=== PATIENT | male | born 1985 | race Hispanic/Latino ===

== ENCOUNTER 2017-06-05 14:04 | Day surgery (SDC) | payer BC ==
[2017-06-05 15:03] VITALS: BMI 28.8
[2017-06-05] MEDS ORDERED: Lidocaine 1% w Epi 1:100,000 Inj ONE (15:17)
[2017-06-05] MEDS ORDERED: Midazolam 2 MG/2 ML VIAL ONE (15:18)
[2017-06-05 15:47] LABS: PROTHROMBIN TIME 11.1 SECONDS (9.7-12.2)
[2017-06-05] MEDS ORDERED: Lidocaine 2% Inj (20ml) ONE (17:01)
[2017-06-05] MEDS ORDERED: Iohexol 350mg/ml 100 ML ONE (17:11)
[2017-06-05] MEDS ORDERED: Iodixanol 320 MG/ML 100 ML BOTTLE IV ONE (17:23)
--- NOTE | 2017-06-05 18:04 | PCM.SURG1 ---
Surgeon's Initial Post Op Note - Surgeon's Notes Surgeon: Dr. Cornell Supervisor Microwave: Kenroy Boothe Type of Anesthesia: IV Sedation Pre-Operative Diagnosis: Vertebral artery Dissection Operative Findings: Bilateral Vertebral Artery Dissection with flow restriction on right side and good flow on the left side Post-Operative Diagnosis: bilateral vertebral artery dissection Operation Performed: diagnostic cerebral angiogram Specimen/Specimens Removed: None Estimated Blood Loss: EBL {In ML}: 20 Blood Products Given: N/A Drains Used: No Drains Post-Op Condition: Good Date of Surgery/Procedure: 06/05/17 Time of Surgery/Procedure: 18:05
--- NOTE | 2017-06-06 11:35 | PCM.OP ---
Operative Report - Operative Report Date of Surgery/Procedure: 06/05/17 Time of Surgery/Procedure: 17:00 Surgeon: Dr. Cornell Pointer Helper: Kenroy Boothe Anesthesia/Sedation: Minimal Sedation Pre-Operative Diagnosis: Bilateral Vertebral Artery Dissection Post-Operative Diagnosis: Bilateral Vertebral Artery Dissection Indication for Surgery: Bilateral Vertebral Artery Dissection Operative Findings: As below Procedure/Operation Description: Preoperative Diagnosis : Diagnostic cerebral angiogram for the evaluation of vertebral artery dissection. Postoperative Diagnosis : 1) Bilateral Vertebral Artery Dissection. A) right vertebral artery dissection is long segment in the v2 segment and is severe and flow limiting. B) Left vertebral artery dissection is focal, mildly flow limiting and possibly chronic. Procedure : Diagnostic cerebral angiogram. Referring Physician : Date of Service : 06/06/2017. Surgeon : Dr. Parish Cornell. Pointer Helper(s) : Dr. Robbin Oconnor. Consent : Informed consent was obtained for the procedure after discussing the potential risks and benefits of the procedure. Potential risks such as vascular injury, vascular occlusion, further stroke, intracranial hemorrhage and even were discussed. The benefits including obtaining information that would guide management were discussed. The alternatives including conservative management were discussed. After all questions were satisfactorily answered, the patient gave informed consent. Anesthesia : Local Anesthesia. Preoperative Medications : None. Introduction : A timeout procedure was documented, the patient's namedate of and medical record number as well as the procedures to be performed was confirmed by the entire team, after everyone in the room agreed, the procedure continued. After the patient was placed under anesthesia, both groins were prepped and draped in the usual sterile fashion.Using sterile Seldinger technique the right common femoral artery was punctured using a micropuncture kit. Over a 3mm J wire a 5 [place]ambian sheath was introduced into the artery and then hooked up to a continuous heparinized flush system.Via the sheath a 5 [place] Slip Guide Catheter was introduced over a 0.35 Terumo glide wire, into the abdominal aorta , the catheter was than double flushed. The following vessels were than sequentially selected, and digital angiographic acquisitions were than obtained. Vessels Selected : The right common carotid artery was selected and injected with cervical views. The right internal carotid artery was selected and injected with cranial views. The right subclavian artery was selected and injected with thoracic, cervical and cranial views. The left common carotid artery was selected and injected with cervical views. The left internal carotid artery was selected and injected with cranial views. The left subclavian artery was selected and injected with thoracic and cervical and cranial views. The left subclavian artery was selected and injected with cranial views. Diagnostic Imaging Findings : The right common carotid artery was selected and injected with cervical views. The right common carotid artery appears normal without any areas of irregularity or stenosis. The right external carotid artery appears normal without any areas of irregularity or stenosis. The right internal carotid artery appears normal without any areas of irregularity or stenosis. The right internal carotid artery was selected and injected with cranial views. The right internal carotid artery appears normal without any areas of irregularity or stenosis. The right middle cerebral artery appears normal without any areas of irregularity or stenosis. The right anterior cerebral artery appears normal without any areas of irregularity or stenosis. There is robust filling of the posterior circulation via a posterior communicating artery. The capillary and venous phases appears normal without any significant abnormality. The right subclavian artery was selected and injected with thoracic, cervical and cranial views. The right subclavian artery appears normal without any areas of irregularity or stenosis. The origin of the right vertebral artery appears normal without any areas of irregularity or stenosis. There is a long segment severe dissection in the v2 segment of the right vertebral artery causing flow limitation. There is some flow into the basilar artery that is obscured by washout from the contralateral side. The left common carotid artery was selected and injected with cervical views. The left common carotid artery appears normal without any areas of irregularity or stenosis. The left external carotid artery appears normal without any areas of irregularity or stenosis. The left internal carotid artery appears normal without any areas of irregularity or stenosis. The left internal carotid artery was selected and injected with cranial views. The left internal carotid artery appears normal without any areas of irregularity or stenosis. The left middle cerebral artery appears normal without any areas of irregularity or stenosis. The left anterior cerebral artery appears normal without any areas of irregularity or stenosis. The capillary and venous phases appears normal without any significant abnormality. The left subclavian artery was selected and injected with thoracic and cervical and cranial views. The left subclavian artery appears normal without any areas of irregularity or stenosis. The origin of the left vertebral artery appears normal without any areas of irregularity or stenosis. There is a focal minimally flow limiting dissection in the cervical v2 segment of the left vertebral artery. Its appearance suggests that this is possibly chronic. The left subclavian artery was selected and injected with cranial views. The intracranial portion of the left vertebral artery appears normal without any areas of irregularity or stenosis. The left PICA appears normal without any areas of irregularity or stenosis. The basilar artery appears normal without any areas of irregularity or stenosis. The right posterior cerebral artery is hypoplastic. The left posterior cerebral artery appears normal without any areas of irregularity or stenosis. The capillary and venous phases appears normal without any significant abnormality. Conclusion : Hemostasis was obtained using a 5F Mynx closure device. The patient tolerated the procedure well and there were no complications. Intraoperative Medications : None. Materials Utilized : Diagnostic Angiography kit. Impression : Please do not hesitate to contact me for any further questions or clarifications regarding this procedure or the patient at [phone]. Sincerely. Dr. Parish Cornell. [facility] Estimated Blood Loss: 20 cc Complications: None Immediate Discharge & Condition: Fair
--- NOTE | 2017-06-07 06:56 | OP ---
PROCEDURE DATE: 06/05/2017 PROCEDURE: Diagnostic cerebral angiogram. Please find the detailed report under operative report. If you have any questions, please do not hesitate to contact me at [phone]. Parish Cornell MD/ [facility]
== END 2017-06-05 20:45 | disposition short-term general hospital (02) ==
LOC: C.CATHLAB 14:04
PROVIDERS: ATTEND Psychiatry & Neurology Vascular Neurology
DX: I77.74 Dissection of vertebral artery (principal)
CPT/HCPCS: 36415; 85610; 85730; J1644; J3010; Q9967

== ENCOUNTER 2017-06-12 19:03 | Inpatient (IN) | payer BC ==
[2017-06-12 19:03] VITALS: BMI 28.8
[2017-06-12 20:04] LABS: BASO # 0.1 K/uL (0.0-0.2); BASO % 0.7 % (0.0-2.0); EOS # 0.1 K/uL (0.0-0.7); EOS % 1.3 % (0.0-4.0); HEMOGLOBIN 14.4 g/dL (12.0-18.0); LYMPH # 2.4 K/uL (1.0-4.3); LYMPH % 24.9 % (20.0-40.0); MEAN CELL VOLUME 92.6 fL (80.0-94.0); MEAN CORPUSCULAR HEMOGLOBIN 32.4 pg (27.0-31.0); MEAN PLATELET VOLUME 9.5 fL (7.2-11.7); MONO # 1.1 K/uL (0.0-0.8); MONO % 11.5 % (0.0-10.0); NEUT # 5.9 K/uL (1.8-7.0); NEUT % 61.6 % (50.0-75.0); NRBC % 0.1 % (0.0-2.0); RBC 4.44 Mil/uL (4.40-5.90); RED CELL DISTRIBUTION WIDTH 12.6 % (11.5-14.5); WHITE BLOOD COUNT 9.6 K/uL (4.8-10.8)
[2017-06-12] MEDS ORDERED: Morphine 4 MG/ML VIAL ONE (20:43)
[2017-06-12] MEDS ORDERED: Enoxaparin 100 mg Syringe SC SCH (22:45)
--- NOTE | 2017-06-12 23:01 | C.PDOC ---
History Of Present Illness Pt c/o right groin pain and swelling. Pt was diagnosed with vertebral artery dissection and was started on anticoagulation. He then had an angiogram 7 days ago done through the right femoral artery. Pt c/o worsening pain and swelling in the right groin area. An outpatient CT angio was done today which showed a femoral artery pseudoaneurysm. Time Seen by Provider: 06/12/17 19:39 Chief Complaint (Nursing): Abnormal Skin Integrity History Per: Patient Onset/Duration Of Symptoms: Days (7) Current Symptoms Are (Timing): Worse Severity: Moderate Context: s/p angiogram Location: Right groin Quality: Swelling Reports Recently: Treated By A Physician Additional History Per: Prior Records Past Medical History Reviewed: Historical Data, Nursing Documentation, Vital Signs Vital Signs: Last Vital Signs Temp 98.6 F 06/12/17 21:38 Pulse 73 06/12/17 21:38 Resp 18 06/12/17 21:38 BP 125/87 06/12/17 21:38 Pulse Ox 99 06/12/17 21:38 - Medical History PMH: Hypothyroidism Other PMH: Vertebral artery dissection - [employer] Procedures INJECT/INFUSE NEC (05/18/14) Family History: States: Unknown Family Hx - Social History Hx Alcohol Use: No (occasionally) Hx Substance Use: No - Immunization History Hx Tetanus Toxoid Vaccination: No Hx Influenza Vaccination: No Hx Pneumococcal Vaccination: No Review Of Systems Except As Marked, All Systems Reviewed And Found Negative. Constitutional: Negative for: Fever Cardiovascular: Negative for: Chest Pain Respiratory: Negative for: Shortness of Breath Gastrointestinal: Negative for: Vomiting, Abdominal Pain Genitourinary: Negative for: Dysuria Musculoskeletal: Negative for: Neck Pain, Back Pain, Leg Pain Skin: Positive for: Bruising Neurological: Negative for: Weakness, Numbness Physical Exam - Physical Exam Appears: Non-toxic, No Acute Distress Skin: Warm, Dry, Ecchymosis (right groin) Head: Atraumatic, Normacephalic Eye(s): bilateral: PERRL, EOMI Neck: Normal ROM, Supple Cardiovascular: Rhythm Regular Respiratory: Normal Breath Sounds, No Accessory Muscle Use Gastrointestinal/Abdominal: Soft, No Tenderness Back: No CVA Tenderness Male Genital: No Testicular Tenderness, No Testicular Swelling, Inguinal Tenderness (right), Inguinal Swelling (right), No Scrotal Swelling Extremity: Normal ROM, No Pedal Edema, No Calf Tenderness Pulses: Left Dorsalis Pedis: Normal, Right Dorsalis Pedis: Normal Neurological/Psych: Oriented x3, Normal Motor, Normal Sensation ED Course And Treatment - Laboratory Results Result Diagrams: 06/12/17 19:55 Lab Interpretation: No Changes Compared To Prior Results O2 Sat by Pulse Oximetry: 99 Pulse Ox Interpretation: Normal - Physician Consult Information Physician Contacted: Dallas Diaz Jr. (Vascular) Outcome Of Conversation: He will consult. Disposition Discussed With : Az Gilbert Comment: He accepted pt on his service and requested Vascular consult from Dr. Diaz. Doctor Will See Patient In The: Hospital Counseled Patient/Family Regarding: Studies Performed, Diagnosis - Disposition Disposition: HOSPITALIZED Disposition Time: 23:03 Condition: FAIR - Clinical Impression Clinical Impression: Pseudoaneurysm of right femoral artery
--- NOTE | 2017-06-12 23:41 | CP.PCM.CON ---
History of Present Illness - History of Present Illness History of Present Illness: Vascular Surgery Consult Note for Dr. Diaz Reason for Consult: Right common femoral artery pseudoaneurysm 32 M with past medical history that includes eboni's thyroiditis, s/p CVA, and bilateral vertebral artery dissections presents with right groin pain for two days. Patient states he has had soreness in area since last week but pain worsened on Monday. Patient presented to [facility] about a week ago with CVA symptoms and after thorough work up, found to have bilateral vertebral artery dissections. Patient had cerebral angiogram during the admission. In operative report its state micro puncture kit was used and closure with 5F mynx closure device. Patient had appointment with Dr. Santos today in which he was sent for CT Angio. It revealed right common femoral artery pseudo aneurysm with foci of bleeding in right groin. Patience Hgb at time of scan was 14.7 and subsequent CBC done in ED showed Hgb of 14.4. Patient rates pain as moderate to severe. He describes it as constant and sharp. Movement and palpation exacerbates pain while analgesics provide some relief. Denies chest pain, shortness of breath, dizziness/lightheadedness, chest pain, SOB, abdominal pain, nausea/vomiting, diarrhea, numbness/tingling, motor/sensory deficits. PMH: eboni's thyroiditis, s/p CVA, bilateral vertebral artery dissections Meds: Levothyroxine Alergy: NKDA PSH: cerebral angiogram, 2 nasal surgeries FH: marfan's syndrome, CAD, unknown Neuro disorder, autoimmune diseases Social: denies tobacco/EtOH/illicit drug use Review of Systems - Review of Systems All systems: reviewed and no additional remarkable complaints except (as per HPI ) Past Patient History - Past Medical History & Family History Past Medical History?: Yes - Past Social History Smoking Status: Never Smoked - PULMONARY Hx Respiratory Disorders: Yes - NEUROLOGICAL HX Cerebrovascular Accident: Yes (06/04/2017) - ENDOCRINE/METABOLIC Hx Hypothyroidism: Yes - MUSCULOSKELETAL/RHEUMATOLOGICAL Hx Falls: Yes - PSYCHIATRIC Hx Substance Use: No - SURGICAL HISTORY Hx Angiogram: Yes (06/05/2017) - ANESTHESIA Hx Anesthesia: Yes Hx Anesthesia Reactions: No Hx Malignant Hyperthermia: No Meds Allergies/Adverse Reactions: Allergies Allergy/AdvReac Type Severity Reaction Status Date / Time No Known Allergies Allergy Verified 06/12/17 19:14 - Medications Medications: Current Medications Levothyroxine Sodium (Synthroid) 125 mcg PO DAILY@0630 CELINA Rosuvastatin Calcium (Crestor) 5 mg PO HS CELINA Physical Exam - Constitutional Appears: No Acute Distress - Head Exam Head Exam: ATRAUMATIC, NORMOCEPHALIC - Eye Exam Eye Exam: EOMI, Normal appearance Pupil Exam: PERRL - ENT Exam ENT Exam: Mucous Membranes Moist - Respiratory Exam Respiratory Exam: NORMAL BREATHING PATTERN - Cardiovascular Exam Cardiovascular Exam: REGULAR RHYTHM - GI/Abdominal Exam GI & Abdominal Exam: Soft. absent: Distended, Guarding, Rebound, Tenderness Additional comments: ecchymoses from lovenox injections - Extremities Exam Extremities exam: Positive for: normal capillary refill, tenderness (R groin), pedal pulses present (bilaterally). Negative for: calf tenderness Additional comments: RLE: large R groin ecchymosis, TTP, edema, palpable solid circular mass, femoral /popliteal/PT/DP pulses palpable, sensation intact, motor function intact 5/5 except for hip flexion 4/5, reflexes normal, warm to touch - Back Exam Back exam: absent: CVA tenderness (L), CVA tenderness (R) - Neurological Exam Neurological exam: Alert, CN II-XII Intact, Oriented x3, Reflexes Normal - Expanded Neurological Exam Expanded Coma Scale Eye Opening: SPONTANEOUS Coma Scale Motor Response: OBEYS COMMANDS Coma Scale Verbal: Oriented Coma Scale Total: 15 - Psychiatric Exam Psychiatric exam: Normal Affect, Normal Mood - Skin Skin Exam: Dry, Intact, Warm Results - Vital Signs Recent Vital Signs: Last Vital Signs Temp 98.6 F 06/12/17 21:38 Pulse 73 06/12/17 21:38 Resp 18 06/12/17 21:38 BP 125/87 06/12/17 21:38 Pulse Ox 99 06/12/17 23:04 - Labs Result Diagrams: 06/12/17 19:55 Labs: Laboratory Results - last 24 hr 06/12/17 06/12/17 06/12/17 19:55 19:59 20:03 WBC 9.6 RBC 4.44 Hgb 14.4 Hct 41.1 MCV 92.6 MCH 32.4 H MCHC 35.0 RDW 12.6 Plt Count 248 MPV 9.5 Neut % (Auto) 61.6 Lymph % (Auto) 24.9 Sullivan % (Auto) 11.5 H Eos % (Auto) 1.3 Baso % (Auto) 0.7 Neut # (Auto) 5.9 Lymph # (Auto) 2.4 Sullivan # (Auto) 1.1 H Eos # (Auto) 0.1 Baso # (Auto) 0.1 ESR 55 H Blood Type O POSITIVE Antibody Screen Negative Assessment & Plan - Assessment and Plan (Free Text) Plan: 32 M with Right common femoral artery pseudoaneurysm -NPO -Arterial duplex -Hold anticoagulation -IR consult -Possible thrombin injection -Discussed with Dr. Emily Barnard PGY1
[2017-06-13 03:06] VITALS: RESP 20
[2017-06-13] MEDS: Levothyroxine 125 MCG TAB PO SCH (06:23)
[2017-06-13] MEDS ORDERED: Thrombin Topical 5,000 Int Units Spray Kit TOP ONE (09:04)
[2017-06-13 09:18] LABS: INR 1.1; PROTHROMBIN TIME 12.5 SECONDS (9.7-12.2)
[2017-06-13 09:28] LABS: ALB/GLOB RATIO 1.1 (1.0-2.1); ALBUMIN 3.9 g/dL (3.5-5.0); ALT/SGPT 100 U/L (21-72); AST/SGOT 47 U/L (17-59); BLOOD UREA NITROGEN 11 mg/dL (9-20); CALCIUM 9.1 mg/dl (8.6-10.4); GFR AFRICAN-AMERICAN > 60; GFR NON-AFRICAN AMERICAN > 60
--- NOTE | 2017-06-13 09:41 | CP.PCM.PN ---
Subjective - Date & Time of Evaluation Date of Evaluation: 06/13/17 Time of Evaluation: 08:00 - Subjective Subjective: Vascular Surgery- Dr. Diaz Patient seen and examined at bedside this AM. Patient currently has sandbag and pressure over right groin. Denies fevers, chills, chest pain, shortness of breath, numbness/tingling in extremities. Objective - Vital Signs/Intake and Output Vital Signs (last 24 hours): Temp Pulse Resp BP Pulse Ox 97.6 F 81 20 138/86 97 06/13/17 07:00 06/13/17 07:00 06/13/17 07:00 06/13/17 07:00 06/13/17 07:00 - Medications Medications: Current Medications Levothyroxine Sodium (Synthroid) 125 mcg PO DAILY@0630 CELINA Last Admin: 06/13/17 06:23 Dose: 125 mcg Rosuvastatin Calcium (Crestor) 5 mg PO HS CELINA - Labs Labs: 06/12/17 19:55 06/13/17 09:06 PT 12.5 SECONDS (9.7-12.2) H 06/13/17 09:06 INR 1.1 06/13/17 09:06 APTT 33 SECONDS (21-34) 06/13/17 09:06 - Constitutional Appears: Non-toxic, No Acute Distress - Eye Exam Eye Exam: EOMI. absent: Scleral icterus - ENT Exam ENT Exam: Mucous Membranes Moist - Respiratory Exam Respiratory Exam: NORMAL BREATHING PATTERN. absent: Accessory Muscle Use, Respiratory Distress - Cardiovascular Exam Cardiovascular Exam: +S1, +S2 - GI/Abdominal Exam GI & Abdominal Exam: Soft. absent: Guarding, Rigid, Tenderness - Extremities Exam Additional comments: R. Groin incision site, ecchymosis. non-palpable hematoma - Neurological Exam Neurological Exam: Alert, Awake, Oriented x3 - Skin Skin Exam: Intact, Warm Assessment and Plan - Assessment and Plan (Free Text) Assessment: 32 M with Right common femoral artery pseudoaneurysm Plan: -NPO -Arterial duplex -Hold anticoagulation -IR consult for possible thrombin injection -Discussed with Dr. Emily Winter PGY1
[2017-06-13] MEDS ORDERED: Lidocaine 2% Inj (20ml) ONE (11:11)
--- NOTE | 2017-06-13 12:15 | CP.PCM.CON ---
History of Present Illness - History of Present Illness History of Present Illness: Consult Location: Inpatient Reason for consult: Large Right Femoral Pseudoaneurysm Consult Requested by: Dr. Santos Chief Concern: Pain in right leg HPI: 32 yo gentleman with a medical history significant for Hasimoto's Thyroiditis, Ischemic Stroke, Bilateral Vertebral Artery Dissections who presented to Dr. Santos's office for right leg pain. The patient had an angiogram 7 days ago and was discharged home and noticed that his right groin was painful and bruised. He was having pain in the region but assumed that it was expected. He was also taking his lovenox as prescribed. He has not had any stroke like episodes. No other complaints at this time. PMH: as above PSH: Endoscopic sinus surgery, Diagnostic Cerebral Angiogram All: NKDA Meds: Reviewed and listed below SH: no t.e.d FH: Collagen Vascular Disorders and autoimmune diseases On exam MSE: AO x 3, No aphasia or neglect, No dysarthria CN: pupils 4 mm to 3 mm b/l, VFF, EOM full, no nystagmus, no facial asymmetry or sensory loss, tongue midline, hearing intact b/l Motor: 5/5 b/l Sensory: Intact bilaterally Coord: No dysmetria Gait: Deferred Right Groin: Bruising noted and a hematoma noted on palpation. Past Patient History - Past Medical History & Family History Past Medical History?: Yes - Past Social History Smoking Status: Never Smoked - PULMONARY Hx Respiratory Disorders: Yes - NEUROLOGICAL HX Cerebrovascular Accident: Yes (06/04/2017) - ENDOCRINE/METABOLIC Hx Hypothyroidism: Yes - MUSCULOSKELETAL/RHEUMATOLOGICAL Hx Falls: Yes - PSYCHIATRIC Hx Substance Use: No - SURGICAL HISTORY Hx Angiogram: Yes (06/05/2017) - ANESTHESIA Hx Anesthesia: Yes Hx Anesthesia Reactions: No Hx Malignant Hyperthermia: No Meds Allergies/Adverse Reactions: Allergies Allergy/AdvReac Type Severity Reaction Status Date / Time No Known Allergies Allergy Verified 06/12/17 19:14 - Medications Medications: Current Medications Levothyroxine Sodium (Synthroid) 125 mcg PO DAILY@0630 [facility] Last Admin: 06/13/17 06:23 Dose: 125 mcg Rosuvastatin Calcium (Crestor) 5 mg PO [facility] Results - Vital Signs Recent Vital Signs: Last Vital Signs Temp 97.6 F 06/13/17 07:00 Pulse 81 06/13/17 07:00 Resp 20 06/13/17 07:00 BP 138/86 06/13/17 07:00 Pulse Ox 97 06/13/17 07:00 - Labs Result Diagrams: 06/12/17 19:55 06/13/17 09:06 Labs: Laboratory Results - last 24 hr 06/12/17 06/12/17 06/12/17 19:55 19:59 20:03 WBC 9.6 RBC 4.44 Hgb 14.4 Hct 41.1 MCV 92.6 MCH 32.4 H MCHC 35.0 RDW 12.6 Plt Count 248 MPV 9.5 Neut % (Auto) 61.6 Lymph % (Auto) 24.9 Nicholas % (Auto) 11.5 H Eos % (Auto) 1.3 Baso % (Auto) 0.7 Neut # (Auto) 5.9 Lymph # (Auto) 2.4 Nicholas # (Auto) 1.1 H Eos # (Auto) 0.1 Baso # (Auto) 0.1 ESR 55 H PT INR APTT Sodium Potassium Chloride Carbon Dioxide Anion Gap BUN Creatinine Est GFR ( Amer) Est GFR (Non-Af Amer) Random Glucose Calcium Total Bilirubin AST ALT Alkaline Phosphatase Total Protein Albumin Globulin Albumin/Globulin Ratio Blood Type O POSITIVE Antibody Screen Negative 06/13/17 06/13/17 09:06 09:06 WBC RBC Hgb Hct MCV MCH MCHC RDW Plt Count MPV Neut % (Auto) Lymph % (Auto) Nicholas % (Auto) Eos % (Auto) Baso % (Auto) Neut # (Auto) Lymph # (Auto) Nicholas # (Auto) Eos # (Auto) Baso # (Auto) ESR PT 12.5 H INR 1.1 APTT 33 Sodium 139 Potassium 3.8 Chloride 100 Carbon Dioxide 27 Anion Gap 16 BUN 11 Creatinine 0.9 Est GFR ( Amer) > 60 Est GFR (Non-Af Amer) > 60 Random Glucose 100 Calcium 9.1 Total Bilirubin 1.2 AST 47 ALT 100 H Alkaline Phosphatase 82 Total Protein 7.6 Albumin 3.9 Globulin 3.6 Albumin/Globulin Ratio 1.1 Blood Type Antibody Screen Assessment & Plan - Assessment and Plan (Free Text) Assessment: Large Right Femoral Artery Pseudo Aneurysm noted on CTA for evaluation and possible thrombin injection Plan: 1) I had a detailed discussion with Dr. Korya regarding the case yesterday evening ( after reviewing the cta) and we decided to stop the anticoagulation for the time being 2) Pain control - Start with tylenol 3) I had a detailed discussion with the patient and his mother regarding the potentially serious nature of his condition. I discussed the risks benefits and alternatives to treatment of the femoral pseudoaneurysm with compression and potentially thrombin injection and they both expressed excellent understanding of the same 4) Approximately 45 minutes of critical care time was spent in evaluating and managing and coordinating and documenting care for this patient with a large right femoral artery pseudoaneurysm - Date & Time Date: 06/13/17 Time: 11:00
--- NOTE | 2017-06-13 12:44 | PCM.SURG1 ---
Surgeon's Initial Post Op Note - Surgeon's Notes Surgeon: Dr. Cornell Category Consultant: None Type of Anesthesia: Moderate Sedation{RN} Anesthesia Administered By: Dr. Cornell Pre-Operative Diagnosis: Large Right Femoral Artery Pseudoaneurysm Operative Findings: The pseudoaneurysm has reduced in size compared to CTA. There is now a smaller sac measuring 1.5 cm that is filling via multiple necks. Post-Operative Diagnosis: Successful Obliteration of Right Femoral Artery Pseudoaneurysm with Ultrasound Guided Compression Operation Performed: Ultrasound guided compression of right femoral artery pseudoaneurysm. The multiple necks were sequentially compressed under untrasound guidance over a period of 45 minutes with successful obliteration of the pseudoaneurysm. 50 mcg of fentanyl was administered during the procedure. Specimen/Specimens Removed: None Estimated Blood Loss: EBL {In ML}: 0 (None) Blood Products Given: N/A Drains Used: No Drains Post-Op Condition: Fair Date of Surgery/Procedure: 06/13/17 Time of Surgery/Procedure: 12:45
--- NOTE | 2017-06-13 23:11 | CP.PCM.HP ---
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 Patient states he has had soreness in area since last week but pain worsened on Monday. Patient presented to [facility] about a week ago with CVA symptoms and after thorough work up, found to have bilateral vertebral artery dissections. Patient had cerebral angiogram during the admission. In operative report its state micro puncture kit was used and closure with 5F mynx closure device. Patient had appointment with Dr. Santos today in which he was sent for CT Angio. It revealed right common femoral artery pseudo aneurysm with foci of bleeding in right groin. Patience Hgb at time of scan was 14.7 and subsequent CBC done in ED showed Hgb of 14.4. Patient rates pain as moderate to severe. He describes it as constant and sharp. Movement and palpation exacerbates pain while analgesics provide some relief. Denies chest pain, shortness of breath, dizziness/lightheadedness, chest pain, SOB, abdominal pain, nausea/vomiting, diarrhea, numbness/tingling, motor/sensory deficits. PMH: eboni's thyroiditis, s/p CVA, bilateral vertebral artery dissections Meds: Levothyroxine Alergy: NKDA PSH: cerebral angiogram, 2 nasal surgeries FH: marfan's syndrome, CAD, unknown Neuro disorder, autoimmune diseases Social: denies tobacco/EtOH/illicit drug use Present on Admission - Present on Admission Any Indicators Present on Admission: Yes Review of Systems - Review of Systems Systems not reviewed;Unavailable: Acuity of Condition - Constitutional Constitutional: Fatigue, Lethargy, Malaise, Weakness - EENT Eyes: absent: As Per HPI, Blind Spots, Blurred Vision, Change in Vision, Decreased Night Vision, Diplopia, Discharge, Dry Eye, Exophthalmos, Floaters, Irritation, Itchy Eyes, Loss of Peripheral Vision, Pain, Photophobia, Requires Corrective Lenses, Sees Flashes, Spots in Vision, Tunnel Vision, Other Visual Disturbances, Loss of Vision, Other Nose/Mouth/Throat: absent: As Per HPI, Epistaxis, Nasal Congestion, Nasal Discharge, Nasal Obstruction, Nasal Trauma, Nose Pain, Post Nasal Drip, Sinus Pain, Sinus Pressure, Bleeding Gums, Change in Voice, Dental Pain, Dry Mouth, Dysphagia, Halitosis, Hoarsness, Lip Swelling, Mouth Lesions, Mouth Pain, Odynophagia, Sore Throat, Throat Swelling, Tongue Swelling, Facial Pain, Neck Pain, Neck Mass, Other - Cardiovascular Cardiovascular: absent: As Per HPI, Acrocyanosis, Chest Pain, Chest Pain at Rest , Chest Pain with Activity, Claudication, Diaphoresis, Dyspnea, Dyspnea on Exertion, Edema, Irregular Heart Rhythm, Pain Radiating to Arm/Neck/Jaw, Leg Edema, Leg Ulcers, Lightheadedness, Orthopnea, Palpitations, Paroxysmal Nocturnal Dyspnea, Pedal Edema, Radiating Pain, Rapid Heart Rate, Slow Heart Rate, Syncope, Other - Musculoskeletal Musculoskeletal: Limited Range of Motion, Numbness, Tingling - Integumentary Integumentary: absent: As Per HPI, Acne, Alopecia, Bleeding Lesions, Change in Hair, Change in Nails, Change in Pigmentation, Changing Lesions, Dry Skin, Erythema, Furuncle, Hirsutism, Lesions, New Lesions, Non-Healing Lesions, Photosensitivity, Pruritus, Rash, Skin Pain, Skin Ulcer, Sores, Striae, Swelling , Unusual Bruising, Wounds, Jaundice, Other Past Patient History - Past Medical History & Family History Past Medical History?: Yes - Past Social History Smoking Status: Never Smoked - PULMONARY Hx Respiratory Disorders: Yes - NEUROLOGICAL HX Cerebrovascular Accident: Yes (06/04/2017) - ENDOCRINE/METABOLIC Hx Hypothyroidism: Yes - MUSCULOSKELETAL/RHEUMATOLOGICAL Hx Falls: Yes - PSYCHIATRIC Hx Substance Use: No - SURGICAL HISTORY Hx Angiogram: Yes (06/05/2017) - ANESTHESIA Hx Anesthesia: Yes Hx Anesthesia Reactions: No Hx Malignant Hyperthermia: No Meds Allergies/Adverse Reactions: Allergies Allergy/AdvReac Type Severity Reaction Status Date / Time No Known Allergies Allergy Verified 06/12/17 19:14 Physical Exam - Constitutional Appears: No Acute Distress - Head Exam Head Exam: ATRAUMATIC, NORMAL INSPECTION, NORMOCEPHALIC - Eye Exam Eye Exam: EOMI, Normal appearance, PERRL Pupil Exam: NORMAL ACCOMODATION, PERRL - Respiratory Exam Respiratory Exam: Clear to Auscultation Bilateral, NORMAL BREATHING PATTERN - Cardiovascular Exam Cardiovascular Exam: REGULAR RHYTHM - Extremities Exam Extremities exam: Negative for: calf tenderness, full ROM, joint swelling, normal capillary refill, normal inspection, pedal edema, tenderness, pedal pulses present - Neurological Exam Neurological exam: Abnormal Gait, Oriented x3 - Psychiatric Exam Psychiatric exam: Anxious Results - Vital Signs Recent Vital Signs: Last Vital Signs Temp 98.3 F 06/13/17 15:25 Pulse 72 06/13/17 15:25 Resp 20 06/13/17 15:25 BP 127/80 06/13/17 15:25 Pulse Ox 95 06/13/17 15:25 - Labs Result Diagrams: 06/14/17 06:54 06/14/17 06:54 Labs: Laboratory Results - last 24 hr 06/13/17 06/13/17 09:06 09:06 PT 12.5 H INR 1.1 APTT 33 Sodium 139 Potassium 3.8 Chloride 100 Carbon Dioxide 27 Anion Gap 16 BUN 11 Creatinine 0.9 Est GFR ( Amer) > 60 Est GFR (Non-Af Amer) > 60 Random Glucose 100 Calcium 9.1 Total Bilirubin 1.2 AST 47 ALT 100 H Alkaline Phosphatase 82 Total Protein 7.6 Albumin 3.9 Globulin 3.6 Albumin/Globulin Ratio 1.1 Assessment & Plan (1) Pseudoaneurysm of right femoral artery Assessment and Plan: s/p surgery on psedoaneurysm and its shrunk 1 cm Status: Acute (2) Hypertension Status: Acute (3) Vertebral artery dissection Status: Acute
[2017-06-14] MEDS: Levothyroxine 125 MCG TAB PO SCH (06:41)
[2017-06-14 07:06] LABS: HEMOGLOBIN 13.5 g/dL (12.0-18.0); MEAN CELL VOLUME 93.5 fL (80.0-94.0); MEAN CORPUSCULAR HEMOGLOBIN 32.1 pg (27.0-31.0); MEAN CORPUSCULAR HGB CONC 34.3 g/dL (33.0-37.0); MEAN PLATELET VOLUME 9.8 fL (7.2-11.7); RBC 4.21 Mil/uL (4.40-5.90); RED CELL DISTRIBUTION WIDTH 12.3 % (11.5-14.5); WHITE BLOOD COUNT 7.2 K/uL (4.8-10.8)
[2017-06-14 07:47] LABS: BLOOD UREA NITROGEN 16 mg/dL (9-20); CALCIUM 8.9 mg/dl (8.6-10.4); GFR AFRICAN-AMERICAN > 60; GFR NON-AFRICAN AMERICAN > 60
--- NOTE | 2017-06-14 12:01 | VASCLAB ---
PROCEDURE: HISTORY: right Femoral Aneursyuem COMPARISON: None available. TECHNIQUE: FINDINGS: Two pseudoaneuryms present. The more superficial pseudoanuerym is thrombosed. The smaller pseudoanerysm measures 2.1 X 1.8 cm. The neck is estimated at 2-3 mm. IMPRESSION: Small active pseudoaneurysm noted in the right groin measuring 2.1 x 1.8 cm with a very small neck.
--- NOTE | 2017-06-14 20:40 | CP.PCM.PN ---
Subjective - Date & Time of Evaluation Date of Evaluation: 06/14/17 Time of Evaluation: 06:40 - Subjective Subjective: Vascular Surgery- Dr. Diaz Patient seen and examined at bedside this AM. aneurysm and puncture site attempted closure yesterday by IR. No new complaints. Denies fevers, chills, chest pain, shortness of breath, numbness/tingling in extremities. Objective - Vital Signs/Intake and Output Vital Signs (last 24 hours): Temp Pulse Resp BP Pulse Ox 97.2 F L 75 20 126/84 95 06/14/17 16:23 06/14/17 16:23 06/14/17 16:23 06/14/17 16:23 06/14/17 16:23 - Medications Medications: Current Medications Docusate Sodium (Colace) 100 mg PO TID [facility] Last Admin: 06/14/17 18:35 Dose: 100 mg Levothyroxine Sodium (Synthroid) 125 mcg PO DAILY@0630 [facility] Last Admin: 06/14/17 06:41 Dose: 125 mcg Rosuvastatin Calcium (Crestor) 5 mg PO [facility] Last Admin: 06/13/17 21:38 Dose: Not Given - Labs Labs: 06/14/17 06:54 06/14/17 06:54 PT 12.5 SECONDS (9.7-12.2) H 06/13/17 09:06 INR 1.1 06/13/17 09:06 APTT 33 SECONDS (21-34) 06/13/17 09:06 - Constitutional Appears: Non-toxic, No Acute Distress - Eye Exam Eye Exam: EOMI. absent: Scleral icterus - ENT Exam ENT Exam: Mucous Membranes Moist - Respiratory Exam Respiratory Exam: NORMAL BREATHING PATTERN. absent: Accessory Muscle Use, Respiratory Distress - Cardiovascular Exam Cardiovascular Exam: +S1, +S2. absent: Bradycardia, Tachycardia - GI/Abdominal Exam GI & Abdominal Exam: Soft. absent: Firm, Guarding, Rigid, Tenderness - Extremities Exam Extremities Exam: absent: Calf Tenderness Additional comments: palpable pedal pulses Right Groin hematoma non-expanding, stable. no signs of active bleeding - Neurological Exam Neurological Exam: Alert, Awake, Oriented x3 - Skin Skin Exam: Intact, Warm Assessment and Plan - Assessment and Plan (Free Text) Assessment: 32 M with Right common femoral artery pseudoaneurysm Plan: - IR attempted thrombin injection yesterday. Site too small - hematoma stable - trend H/H - no surgical intervention indicated at this time - Discussed with Dr. Emily Winter PGY1
--- NOTE | 2017-06-14 22:07 | CP.PCM.CON ---
History of Present Illness - History of Present Illness History of Present Illness: 32 yr old male who was admitted several weeks ago, seen by myself and Dr. 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 Patient had a conventional angiogram performed by and developed a right femoral artery pseudoaneurysm in his right groin. He was admitted and treated and we are following his neurological status. On my examination, has no neurological deficits, except for his baseline dysmetria (from his prior cerebellar infarcts), and his inability to walk tandem. He denies headache, difficulty finding words, weakness, or visual field cut. He has been taking eloquis and tolerating it well over the last week , and has seen in follow up. He was actually sent to the hospital by who noted the development of this pseudoaneurysm. Subsequently, Dr. Cornell performed surgical procedure to reduce the aneurysm. During clinic visit, it was determined that the patient carries a family history of Marfan's syndrome in his great aunt, grandmother and great uncles. There is also a history of strokes, etiology undetermined, at age of 60 on both sides of the family. On his last admission, we sent out hypercoagulable workup, which must be checked. PMH/PSH: HTN, As above. Fh/SH: Binge drinks 1-2 times weekly. 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 No smoking. All: nkda. on exam: Normal neurological exam, except for dysmetria, and difficulty walking heel/ nolen. Past Patient History - Past Medical History & Family History Past Medical History?: Yes - Past Social History Smoking Status: Never Smoked - PULMONARY Hx Respiratory Disorders: Yes - NEUROLOGICAL HX Cerebrovascular Accident: Yes (06/04/2017) - ENDOCRINE/METABOLIC Hx Hypothyroidism: Yes - MUSCULOSKELETAL/RHEUMATOLOGICAL Hx Falls: Yes - PSYCHIATRIC Hx Substance Use: No - SURGICAL HISTORY Hx Angiogram: Yes (06/05/2017) - ANESTHESIA Hx Anesthesia: Yes Hx Anesthesia Reactions: No Hx Malignant Hyperthermia: No Meds Allergies/Adverse Reactions: Allergies Allergy/AdvReac Type Severity Reaction Status Date / Time No Known Allergies Allergy Verified 06/12/17 19:14 - Medications Medications: Current Medications Docusate Sodium (Colace) 100 mg PO TID [facility] Last Admin: 06/14/17 18:35 Dose: 100 mg Levothyroxine Sodium (Synthroid) 125 mcg PO DAILY@0630 [facility] Last Admin: 06/14/17 06:41 Dose: 125 mcg Rosuvastatin Calcium (Crestor) 5 mg PO HS [facility] Last Admin: 06/14/17 21:34 Dose: Not Given Results - Vital Signs Recent Vital Signs: Last Vital Signs Temp 97.2 F L 06/14/17 16:23 Pulse 75 06/14/17 16:23 Resp 20 06/14/17 16:23 BP 126/84 06/14/17 16:23 Pulse Ox 95 06/14/17 16:23 - Labs Result Diagrams: 06/14/17 06:54 06/14/17 06:54 Labs: Laboratory Results - last 24 hr 06/14/17 06/14/17 06:54 06:54 WBC 7.2 RBC 4.21 L Hgb 13.5 Hct 39.3 MCV 93.5 MCH 32.1 H MCHC 34.3 RDW 12.3 Plt Count 273 MPV 9.8 Sodium 136 Potassium 3.6 Chloride 100 Carbon Dioxide 25 Anion Gap 15 BUN 16 Creatinine 1.0 Est GFR ( Amer) > 60 Est GFR (Non-Af Amer) > 60 Random Glucose 106 Calcium 8.9 Assessment & Plan - Assessment and Plan (Free Text) Assessment: 32 yr old male with hypercoagulable state secondary to most likely underlying autoimmune disorder, ie vasculitis, bilateral vertebral artery dissections, ? intracranial vascultis, now with healing right femoral artery pseudoaneurysms. Of note, he also had recent bilateral cerebellar strokes. Plan: 1. Continue eloquis and aspirin 2. Control htn 3. Enforced diet and exercise. 4. Will follow up autoimmune workup. 5. SHould see grave cleaner. Thank you. we will follow.
--- NOTE | 2017-06-14 23:45 | CP.PCM.PN ---
Subjective - Date & Time of Evaluation Date of Evaluation: 06/14/17 Time of Evaluation: 18:00 - Subjective Subjective: Pt seen and evalauted s/p psedoaneurysm reduction, pt c/o some pain at surgical site otherwise feeling better Objective - Vital Signs/Intake and Output Vital Signs (last 24 hours): Temp Pulse Resp BP Pulse Ox 97.2 F L 75 20 126/84 95 06/14/17 16:23 06/14/17 16:23 06/14/17 16:23 06/14/17 16:23 06/14/17 16:23 - Medications Medications: Current Medications Docusate Sodium (Colace) 100 mg PO TID [facility] Last Admin: 06/14/17 18:35 Dose: 100 mg Levothyroxine Sodium (Synthroid) 125 mcg PO DAILY@0630 [facility] Last Admin: 06/14/17 06:41 Dose: 125 mcg Rosuvastatin Calcium (Crestor) 5 mg PO HS [facility] Last Admin: 06/14/17 21:34 Dose: Not Given - Labs Labs: 06/14/17 06:54 06/14/17 06:54 PT 12.5 SECONDS (9.7-12.2) H 06/13/17 09:06 INR 1.1 06/13/17 09:06 APTT 33 SECONDS (21-34) 06/13/17 09:06 - Constitutional Appears: No Acute Distress - Head Exam Head Exam: ATRAUMATIC, NORMAL INSPECTION, NORMOCEPHALIC - Eye Exam Eye Exam: EOMI, Normal appearance, PERRL Pupil Exam: NORMAL ACCOMODATION, PERRL - Respiratory Exam Respiratory Exam: Clear to Ausculation Bilateral, NORMAL BREATHING PATTERN - Cardiovascular Exam Cardiovascular Exam: REGULAR RHYTHM, +S1, +S2. absent: Murmur - GI/Abdominal Exam GI & Abdominal Exam: Soft, Normal Bowel Sounds. absent: Tenderness - Neurological Exam Neurological Exam: Alert, Awake, CN II-XII Intact, Normal Gait, Oriented x3 - Psychiatric Exam Psychiatric exam: Normal Affect, Normal Mood Assessment and Plan (1) Pseudoaneurysm of right femoral artery Status: Acute (2) Hypertension Status: Acute (3) Vertebral artery dissection Status: Acute
[2017-06-15] MEDS: Levothyroxine 125 MCG TAB PO SCH (06:02)
--- NOTE | 2017-06-15 08:18 | CP.PCM.PN ---
Subjective - Date & Time of Evaluation Date of Evaluation: 06/15/17 Time of Evaluation: 08:13 - Subjective Subjective: Mr. Kyle was seen and examined at the bedside. He is alert, oriented in all spheres. He denies any headache, dizziness, lightheadedness, nausea, or vomiting. He has the right femoral pseudoaneurym. He has the fading ecchymosis in the right inner thigh with 5" x 2 " hematoma, tender to touch, but the size of hematoma not increasing.There is positive pedal pulses of the affected leg. Vascular surgery saw the patient with no invasive procedure recommended, but the present hematoma will be absorb by patient's body. There was no untoward events overnight. Objective - Vital Signs/Intake and Output Vital Signs (last 24 hours): Temp Pulse Resp BP Pulse Ox 97.6 F 63 20 125/78 97 06/15/17 07:53 06/15/17 07:53 06/15/17 07:53 06/15/17 07:53 06/15/17 07:53 Intake and Output: 06/15/17 06/15/17 06:59 18:59 Intake Total 10 Balance 10 - Medications Medications: Current Medications Docusate Sodium (Colace) 100 mg PO TID [facility] Last Admin: 06/14/17 18:35 Dose: 100 mg Levothyroxine Sodium (Synthroid) 125 mcg PO DAILY@0630 [facility] Last Admin: 06/15/17 06:02 Dose: 125 mcg Rosuvastatin Calcium (Crestor) 5 mg PO HS [facility] Last Admin: 06/14/17 21:34 Dose: Not Given - Labs Labs: 06/14/17 06:54 06/14/17 06:54 PT 12.5 SECONDS (9.7-12.2) H 06/13/17 09:06 INR 1.1 06/13/17 09:06 APTT 33 SECONDS (21-34) 06/13/17 09:06 - Constitutional Appears: No Acute Distress - Head Exam Head Exam: NORMAL INSPECTION - Neurological Exam Neurological Exam: Alert, Awake, Oriented x3 Neuro motor strength exam: Left Upper Extremity: 5, Right Upper Extremity: 5, Left Lower Extremity: 5, Right Lower Extremity: 5 Additional comments: He is able to follow simple commands. Sensation remains intact. + CMS of the right leg. Assessment and Plan (1) Pseudoaneurysm of right femoral artery Assessment & Plan: Case discussed with Dr. Acuna, continue all current medical regimen. Recommend to start on Eliquis 5 mg PO BID pending the result of the repeat arterial doppler of the patient's right groin. Status: Acute
--- NOTE | 2017-06-15 10:49 | VASCLAB ---
PROCEDURE: Ultrasound-guided compression of pseudoaneurysm. HISTORY: Pseudoaneurysm right groin COMPARISON: None available. TECHNIQUE: WINTER Roman, RVT FINDINGS: After series of 20 minutes compressions, there was no evidence of active flow within the pseudoaneurysm. A femoral artery is patent. IMPRESSION: Successful thrombosis of right femoral artery pseudoaneurysm with ultrasound-guided graded compression.
--- NOTE | 2017-06-15 10:50 | VASCLAB ---
PROCEDURE: HISTORY: Follow up for right femoral Pseudoaneurysm COMPARISON: None available. TECHNIQUE: WINTER Roman, RVT FINDINGS: Normal flow velocities noted within right common femoral, proximal superficial femoral and proximal profunda arteries with no evidence of stenosis. There is no blood flow within the previously described pseudoaneurysm. IMPRESSION: No evidence active blood flow within pseudoaneurysm noted in right groin.
[2017-06-15 16:47] VITALS: BP 121/84; PULSE 76; TEMP 98; O2SAT 95
--- NOTE | 2017-06-15 23:26 | CP.PCM.DIS ---
Provider - Provider Date of Admission: 06/12/17 23:04 Attending physician: Az Gilbert MD Primary care physician: Crystal Sierra MD Diagnosis - Discharge Diagnosis (1) Pseudoaneurysm of right femoral artery Status: Acute (2) Hypertension Status: Acute (3) Vertebral artery dissection Status: Acute Hospital Course - Lab Results Lab Results: Most Recent Lab Values WBC 7.2 K/uL (4.8-10.8) 06/14/17 06:54 RBC 4.21 Mil/uL (4.40-5.90) L 06/14/17 06:54 Hgb 13.5 g/dL (12.0-18.0) 06/14/17 06:54 Hct 39.3 % (35.0-51.0) 06/14/17 06:54 MCV 93.5 fL (80.0-94.0) 06/14/17 06:54 MCH 32.1 pg (27.0-31.0) H 06/14/17 06:54 MCHC 34.3 g/dL (33.0-37.0) 06/14/17 06:54 RDW 12.3 % (11.5-14.5) 06/14/17 06:54 Plt Count 273 K/uL (130-400) 06/14/17 06:54 MPV 9.8 fL (7.2-11.7) 06/14/17 06:54 Neut % (Auto) 61.6 % (50.0-75.0) 06/12/17 19:55 Lymph % (Auto) 24.9 % (20.0-40.0) 06/12/17 19:55 [place] % (Auto) 11.5 % (0.0-10.0) H 06/12/17 19:55 Eos % (Auto) 1.3 % (0.0-4.0) 06/12/17 19:55 Baso % (Auto) 0.7 % (0.0-2.0) 06/12/17 19:55 Neut # (Auto) 5.9 K/uL (1.8-7.0) 06/12/17 19:55 Lymph # (Auto) 2.4 K/uL (1.0-4.3) 06/12/17 19:55 [place] # (Auto) 1.1 K/uL (0.0-0.8) H 06/12/17 19:55 Eos # (Auto) 0.1 K/uL (0.0-0.7) 06/12/17 19:55 Baso # (Auto) 0.1 K/uL (0.0-0.2) 06/12/17 19:55 ESR 55 mm/hr (0-15) H 06/12/17 19:59 PT 12.5 SECONDS (9.7-12.2) H 06/13/17 09:06 INR 1.1 06/13/17 09:06 APTT 33 SECONDS (21-34) 06/13/17 09:06 Sodium 136 mmol/L (132-148) 06/14/17 06:54 Potassium 3.6 mmol/L (3.6-5.2) 06/14/17 06:54 Chloride 100 mmol/L (98-107) 06/14/17 06:54 Carbon Dioxide 25 mmol/L (22-30) 06/14/17 06:54 Anion Gap 15 (10-20) 06/14/17 06:54 BUN 16 mg/dL (9-20) 06/14/17 06:54 Creatinine 1.0 mg/dL (0.8-1.5) 06/14/17 06:54 Est GFR ( Amer) > 60 06/14/17 06:54 Est GFR (Non-Af Amer) > 60 06/14/17 06:54 Random Glucose 106 mg/dL (75-110) 06/14/17 06:54 Calcium 8.9 mg/dl (8.6-10.4) 06/14/17 06:54 Total Bilirubin 1.2 mg/dL (0.2-1.3) 06/13/17 09:06 AST 47 U/L (17-59) 06/13/17 09:06 ALT 100 U/L (21-72) H 06/13/17 09:06 Alkaline Phosphatase 82 U/L (38-126) 06/13/17 09:06 Total Protein 7.6 g/dL (6.3-8.3) 06/13/17 09:06 Albumin 3.9 g/dL (3.5-5.0) 06/13/17 09:06 Globulin 3.6 gm/dL (2.2-3.9) 06/13/17 09:06 Albumin/Globulin Ratio 1.1 (1.0-2.1) 06/13/17 09:06 Blood Type O POSITIVE 06/12/17 20:03 Antibody Screen Negative 06/12/17 20:03 - Hospital Course Hospital Course: Mr. Kyle was seen and examined at the bedside. He is alert, oriented in all spheres. He denies any headache, dizziness, lightheadedness, nausea, or vomiting. He has the right femoral pseudoaneurym. He has the fading ecchymosis in the right inner thigh with 5" x 2 " hematoma, tender to touch, but the size of hematoma not increasing.There is positive pedal pulses of the affected leg. Vascular surgery saw the patient with no invasive procedure recommended, but the present hematoma will be absorb by patient's body. There was no untoward events overnight. Plan: s/p reduction of psedoaneurysm .result of arterial doppler of the right femoral showed no eveidence of active blood flow within the pseudoaneuryms noted in the right groin. Recommend to start eliquis 5 mg PO BID. Discharge Exam - Head Exam Head Exam: NORMAL INSPECTION Discharge Plan - Discharge Medications Prescriptions: Apixaban [Eliquis] 5 mg PO BID #30 tab - Follow Up Plan Condition: FAIR Disposition: HOME/ ROUTINE Instructions: Apixaban (By mouth) Referrals: Zana Santos MD [Staff Provider] - Az Gilbert MD [Staff Provider] -
== END 2017-06-15 22:39 | disposition home or self-care (01) | DRG 299 ==
LOC: C.ER 19:03 → SUPCPDRO 19:03 → C.9E 23:04 → C.6T 06-13 01:01
PROVIDERS: ADMIT Internal Medicine; ATTEND Internal Medicine
PROC: 6A750Z6 Ultrasound Therapy of Peripheral Vessels, Single (ICD-10-PCS; principal; 2017-06-13)
PROC: 3E05317 Introduction of Other Thrombolytic into Peripheral Artery, Percutaneous Approach (ICD-10-PCS; 2017-06-13)
DX: I72.4 Aneurysm of artery of lower extremity (principal); I77.74 Dissection of vertebral artery; I10 Essential (primary) hypertension; Z86.73 Personal history of transient ischemic attack (TIA), and cerebral infarction without residual deficits; I77.6 Arteritis, unspecified; E06.3 Autoimmune thyroiditis

== ENCOUNTER 2017-07-26 13:29 | Emergency (ER) | payer BC ==
[2017-07-26 13:29] VITALS: BMI 28.8
[2017-07-26 13:39] VITALS: O2SAT 97
[2017-07-26 14:19] LABS: BASO # 0.1 K/uL (0.0-0.2); BASO % 1.2 % (0.0-2.0); EOS # 0.1 K/uL (0.0-0.7); EOS % 1.8 % (0.0-4.0); HEMOGLOBIN 15.7 g/dL (12.0-18.0); LYMPH # 1.6 K/uL (1.0-4.3); LYMPH % 30.2 % (20.0-40.0); MEAN CELL VOLUME 92.2 fL (80.0-94.0); MEAN CORPUSCULAR HEMOGLOBIN 31.7 pg (27.0-31.0); MEAN CORPUSCULAR HGB CONC 34.4 g/dL (33.0-37.0); MEAN PLATELET VOLUME 9.7 fL (7.2-11.7); MONO # 0.6 K/uL (0.0-0.8); MONO % 10.4 % (0.0-10.0); NEUT % 56.4 % (50.0-75.0); NRBC % 0.1 % (0.0-2.0); RBC 4.96 Mil/uL (4.40-5.90); RED CELL DISTRIBUTION WIDTH 12.5 % (11.5-14.5); WHITE BLOOD COUNT 5.4 K/uL (4.8-10.8)
[2017-07-26 14:40] LABS: ALB/GLOB RATIO 1.4 (1.0-2.1); ALBUMIN 4.7 g/dL (3.5-5.0); ALT/SGPT 66 U/L (21-72); AST/SGOT 57 U/L (17-59); BLOOD UREA NITROGEN 12 mg/dL (9-20); CALCIUM 9.5 mg/dl (8.6-10.4); GFR AFRICAN-AMERICAN > 60; GFR NON-AFRICAN AMERICAN > 60
[2017-07-26] MEDS ORDERED: Iodixanol 320 MG/ML 100 ML BOTTLE IV ONE (15:04)
--- NOTE | 2017-07-26 15:49 | C.PDOC ---
History Of Present Illness 32-year-old male, referred by Dr Santos for stat CTA head and neck. 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 Patient had vertebral artery stents placed here by Dr Falcon. Patient found to have Hypertension and markedly different blood pressures in each arm. Patient is currently complaining of posterior headache 08/15. Denies nausea/vomiting, fever or neck pain. Time Seen by Provider: 07/26/17 13:46 Chief Complaint (Nursing): Headache History Per: Patient History/Exam Limitations: no limitations Past Medical History Reviewed: Historical Data, Nursing Documentation, Vital Signs Vital Signs: Last Vital Signs Temp 98.2 F 07/26/17 15:53 Pulse 68 07/26/17 15:53 Resp 18 07/26/17 15:53 BP 133/84 07/26/17 16:13 Pulse Ox 97 07/26/17 15:55 - Medical History PMH: Hypothyroidism - [facility] Procedures INJECT/INFUSE NEC (05/18/14) INTRODUCE OF OTH THROMBOLYTIC INTO PERIPH ART, PERC APPROACH (06/12/17) INTRODUCTION OF SERUM/TOX/VACCINE INTO MUSCLE, PERC APPROACH (06/04/17) ULTRASOUND THERAPY OF PERIPHERAL VESSELS, SINGLE (06/12/17) Family History: States: No Known Family Hx - Social History Hx Alcohol Use: Yes Hx Substance Use: No - Immunization History Hx Tetanus Toxoid Vaccination: No Hx Influenza Vaccination: No Hx Pneumococcal Vaccination: No Review Of Systems Constitutional: Negative for: Fever, Chills Cardiovascular: Negative for: Chest Pain, Palpitations Respiratory: Negative for: Shortness of Breath Gastrointestinal: Negative for: Nausea, Vomiting Neurological: Positive for: Headache. Negative for: Weakness, Numbness, Altered Mental Status Physical Exam - Physical Exam Appears: Non-toxic, No Acute Distress Skin: Normal Color, Warm, Dry, No Rash Head: Normacephalic Eye(s): bilateral: PERRL, EOMI Nose: Normal Oral Mucosa: Moist Lips: Normal Appearing Neck: Normal ROM Chest: Symmetrical Cardiovascular: Rhythm Regular, No Murmur Respiratory: Normal Breath Sounds, No Accessory Muscle Use Gastrointestinal/Abdominal: Soft, No Tenderness Extremity: Normal ROM, No Deformity, No Swelling Neurological/Psych: Oriented x3, Normal Speech ED Course And Treatment - Laboratory Results Result Diagrams: 07/26/17 14:14 07/26/17 14:14 O2 Sat by Pulse Oximetry: 97 (RA) Pulse Ox Interpretation: Normal - CT Scan/US XTA head and neck Other Rad Studies (CT/US): Read By Radiologist, Radiology Report Reviewed CT/US Interpretation: Accession No. : [id number]. Patient Name / ID : GAYATRI FOWLER / [id number]. Exam Date : 07/26/2017 15:18:36 ( Approved ). Study Comment : Sex / Age : M / 32Y. Creator : Vida Napier. Dictator : Sterling Blakely MD. Forest And Conservation Worker : Pulley Maintainer : Sterling Blakely MD. Approver2 : Report Date : 07/26/2017 15:33:58. My Comment : . PROCEDURE: CT Angiography of the neck and brain dated 07/26/2017. HISTORY: Vertebral artery dissection. COMPARISON: No prior study available comparison. TECHNIQUE: Contiguous helical/transaxial images of the neck were obtained from the level of the skull-base to the superior mediastinum in the arteriographic phase of enhancement. Coronal and sagittal reformats or also generated. IV contrast dose : 100 cc Visipaque 320. Radiation Dose - DLP: 632.01 mGy-cm. This CT exam was performed using one or more of the following dose reduction techniques: Automated exposure control, adjustment of the mA and/or kV according to patient size, and/or use of iterative reconstruction technique. FINDINGS: The aortic arch and origins of the great vessels widely patent. No significant atherosclerotic plaque identified. Three-vessel arch. The visualized common carotid arteries, carotid bifurcations and internal carotid arteries including the petrous cavernous and supraclinoid segments are widely patent. No significant atherosclerotic plaque. No evidence of occlusion nor significant stenosis. Both vertebral arteries are patent throughout. Both vertebral arteries are relatively symmetric in caliber. No evidence suggest dissection. The basilar artery patent. The visualized major branches of the [place] as well as the distal branches of the anterior, middle and posterior cerebral arteries are also relatively patent and the symmetric as well. . No evidence of large aneurysm nor vascular malformation. Focal area polypoid like mucosal thickening for mucous retention cyst formation left maxillary sinus. Impression. No evidence of occlusion or nor dissection. No evidence of large aneurysm nor vascular malformation. Medical Decision Making Medical Decision Making: Plan: * CTA Head/neck * Bloodwork * Reassess and Disposition Spoke with Dr. Santos, will d/c patient to f/u in 2 weeks. Disposition - Disposition Referrals: Zana Santos MD [Staff Provider] - Disposition: HOME/ ROUTINE Disposition Time: 16:17 Condition: STABLE Forms: [facility] (Sierra Leonean), General Discharge Instructions - Clinical Impression Clinical Impression: Headache, Hypertension - Scribe Statement The provider has reviewed the documentation as recorded by the Scribe (Che Olmedo) All medical record entries made by the Scribe were at my direction and personally dictated by me. I have reviewed the chart and agree that the record accurately reflects my personal performance of the history, physical exam, medical decision making, and the department course for this patient. I have also personally directed, reviewed, and agree with the discharge instructions and disposition.
[2017-07-26 15:54] VITALS: PULSE 68; RESP 18; TEMP 98.2
[2017-07-26 16:13] VITALS: BP 133/84
== END 2017-07-26 16:44 | disposition home or self-care (01) ==
LOC: C.ER 13:29
DX: I10 Essential (primary) hypertension (principal); R51 Headache
CPT/HCPCS: 70496; 70498; 80053; 85025; 99284; Q9967

== ENCOUNTER 2017-12-14 12:21 | Inpatient (IN) | payer BC ==
[2017-12-14 12:21] VITALS: BMI 28.8
[2017-12-14] MEDS ORDERED: Sodium Chloride 0.9% 1,000 ML IV ONE (12:53)
[2017-12-14 13:35] LABS: BASO # 0.1 K/uL (0.0-0.2); BASO % 0.4 % (0.0-2.0); EOS # 0.2 K/uL (0.0-0.7); EOS % 1.3 % (0.0-4.0); LYMPH # 1.2 K/uL (1.0-4.3); LYMPH % 7.5 % (20.0-40.0); MEAN CELL VOLUME 91.9 fL (80.0-94.0); MEAN CORPUSCULAR HEMOGLOBIN 31.9 pg (27.0-31.0); MEAN CORPUSCULAR HGB CONC 34.7 g/dL (33.0-37.0); MEAN PLATELET VOLUME 9.6 fL (7.2-11.7); MONO # 1.4 K/uL (0.0-0.8); MONO % 8.9 % (0.0-10.0); NEUT # 12.7 K/uL (1.8-7.0); NEUT % 81.9 % (50.0-75.0); PLATELET COUNT 263 K/uL (130-400); RBC 5.02 Mil/uL (4.40-5.90); RED CELL DISTRIBUTION WIDTH 13.6 % (11.5-14.5); WHITE BLOOD COUNT 15.4 K/uL (4.8-10.8)
[2017-12-14 13:44] LABS: INR 1.1; PROTHROMBIN TIME 11.9 SECONDS (9.7-12.2)
[2017-12-14 13:48] LABS: ALB/GLOB RATIO 1.6 (1.0-2.1); ALT/SGPT 70 U/L (21-72); AST/SGOT 46 U/L (17-59); BLOOD UREA NITROGEN 12 mg/dL (9-20); CALCIUM 9.8 mg/dl (8.6-10.4); GFR AFRICAN-AMERICAN > 60; GFR NON-AFRICAN AMERICAN > 60; LIPASE 27 U/L (23-300)
[2017-12-14] MEDS ORDERED: Iodixanol 320 MG/ML 100 ML BOTTLE IV ONE (14:01)
--- NOTE | 2017-12-14 14:29 | C.PDOC ---
History Of Present Illness 32 y/o male presents to the ER complaining of right sided abdominal pain for several hours. 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 Sierra, who advised him to come to the ER. The patient admits to experiencing diarrhea and nausea. He denies any vomiting or fever. Time Seen by Provider: 12/14/17 12:53 Chief Complaint (Nursing): Abdominal Pain History Per: Patient History/Exam Limitations: no limitations Onset/Duration Of Symptoms: Hrs, Waxing/Waning Location Of Pain/Discomfort: RLQ Quality Of Discomfort: "Pain" Associated Symptoms: Nausea, Diarrhea. denies: Fever, Vomiting Recent travel outside of the [place]: No Past Medical History Reviewed: Historical Data, Nursing Documentation, Vital Signs Vital Signs: Last Vital Signs Temp 98.1 F 12/14/17 12:35 Pulse 108 H 12/14/17 12:35 Resp 18 12/14/17 12:35 BP 142/102 H 12/14/17 12:35 Pulse Ox 95 12/14/17 17:18 - Medical History PMH: Asthma, HTN, Hypothyroidism, Kidney Stones, Chronic Kidney Disease Other Surgeries: right femoral artery/ psuedo aneurysm - [facility] Procedures INJECT/INFUSE NEC (05/18/14) INTRODUCE OF OTH THROMBOLYTIC INTO PERIPH ART, PERC APPROACH (06/12/17) INTRODUCTION OF SERUM/TOX/VACCINE INTO MUSCLE, PERC APPROACH (06/04/17) ULTRASOUND THERAPY OF PERIPHERAL VESSELS, SINGLE (06/12/17) Family History: States: Unknown Family Hx - Social History Hx Alcohol Use: Yes Hx Substance Use: No - Immunization History Hx Tetanus Toxoid Vaccination: Yes Hx Influenza Vaccination: Yes Hx Pneumococcal Vaccination: Yes Review Of Systems Except As Marked, All Systems Reviewed And Found Negative. Constitutional: Negative for: Fever Respiratory: Negative for: Shortness of Breath Gastrointestinal: Positive for: Nausea, Abdominal Pain (RLQ), Diarrhea. Negative for: Vomiting, Constipation Genitourinary: Negative for: Dysuria, Hematuria Physical Exam - Physical Exam Appears: Well, Non-toxic, No Acute Distress Skin: Normal Color, Warm, No Rash Head: Atraumatic, Normacephalic Eye(s): bilateral: PERRL, EOMI Ear(s): Bilateral: Normal Oral Mucosa: Moist Neck: Normal ROM, Supple Chest: Symmetrical Cardiovascular: Rhythm Regular, No Murmur Respiratory: Normal Breath Sounds, No Rales, No Rhonchi, No Wheezing Gastrointestinal/Abdominal: Bowel Sounds, Soft, Tenderness (to RLQ) Extremity: Normal ROM Extremity: Bilateral: Atraumatic Pulses: Left Radial: Normal, Right Radial: Normal Neurological/Psych: Oriented x3 Gait: Steady ED Course And Treatment - Laboratory Results Result Diagrams: 12/14/17 13:24 12/14/17 13:24 O2 Sat by Pulse Oximetry: 95 (RA) Pulse Ox Interpretation: Normal - CT Scan/US abdomen/pelvis Other Rad Studies (CT/US): Read By Radiologist, Radiology Report Reviewed CT/US Interpretation: FINDINGS: LOWER THORAX: Bilateral lower lobe linear pleural-based scar. LIVER: Unremarkable. No gross lesion or ductal dilatation. GALLBLADDER AND BILE DUCTS: Unremarkable. PANCREAS: Unremarkable. No gross lesion or ductal dilatation. SPLEEN: Unremarkable. ADRENALS: Unremarkable. No mass. KIDNEYS AND URETERS: Unremarkable. No hydronephrosis. No solid mass. VASCULATURE: Unremarkable. No aortic aneurysm. BOWEL: Mild sigmoid diverticulosis without evidence of diverticulitis. No bowel obstruction. APPENDIX: Distended fluid-filled appendix measuring up to 11 mm in diameter. Periappendiceal inflammatory change is noted including thickening of the adjacent transversalis fascia. Shotty subcentimeter lymph nodes are noted in the right lower quadrant of the abdomen. There is an appendicolith seen within the proximal appendiceal lumen. Findings consistent with acute appendicitis. No periappendiceal abscess noted. No associated pneumoperitoneum. PERITONEUM: No ascites. No pneumoperitoneum. Mild left inguinal hernia containing only mesenteric fat. Medical Decision Making Medical Decision Making: Impression: 32 y/o male with right sided abdominal pain Plan: -- CT abdominal/ pelvis --CMP --Lipase --CBC --Partial Thromboplastin Time --Prothrombin Time --IV Fluids 1300- Spoke to surgical team after CT came back Disposition - Disposition Disposition Time: 16:00 Condition: FAIR Forms: [employer] (Brazilian) - Clinical Impression Clinical Impression: Acute appendicitis - PA / [employer]AL DISTRICT CLERK / Resident Statement MD/DO has reviewed & agrees with the documentation as recorded. - Scribe Statement The provider has reviewed the documentation as recorded by the Scribe (Danette Hudson) Provider Attestation: All medical record entries made by the Scribe were at my direction and personally dictated by me. I have reviewed the chart and agree that the record accurately reflects my personal performance of the history, physical exam, medical decision making, and the department course for this patient. I have also personally directed, reviewed, and agree with the discharge instructions and disposition.
[2017-12-14 14:40] LABS: BANDS 2 % (0-2); EOSINOPHIL 1 % (0-4); LYMPHOCYTE 8 % (20-40); MONOCYTE 8 % (0-10); NEUTROPHIL 81 % (50-75); PLATELET ESTIMATE NORMAL (NORMAL); TOTAL CELLS COUNTED 100
--- NOTE | 2017-12-14 16:05 | CT ---
Date of service: 12/14/2017 PROCEDURE: CT Abdomen and Pelvis with contrast HISTORY: RLQ tenderness - r/o appendicitis COMPARISON: 06/12/2017 TECHNIQUE: Contrast dose: 100 mL Visipaque 320 Radiation dose: Total exam DLP = 897.73 mGy-cm. This CT exam was performed using one or more of the following dose reduction techniques: Automated exposure control, adjustment of the mA and/or kV according to patient size, and/or use of iterative reconstruction technique. FINDINGS: LOWER THORAX: Bilateral lower lobe linear pleural-based scar. LIVER: Unremarkable. No gross lesion or ductal dilatation. GALLBLADDER AND BILE DUCTS: Unremarkable. PANCREAS: Unremarkable. No gross lesion or ductal dilatation. SPLEEN: Unremarkable. ADRENALS: Unremarkable. No mass. KIDNEYS AND URETERS: Unremarkable. No hydronephrosis. No solid mass. VASCULATURE: Unremarkable. No aortic aneurysm. BOWEL: Mild sigmoid diverticulosis without evidence of diverticulitis. No bowel obstruction. APPENDIX: Distended fluid-filled appendix measuring up to 11 mm in diameter. Periappendiceal inflammatory change is noted including thickening of the adjacent transversalis fascia. Shotty subcentimeter lymph nodes are noted in the right lower quadrant of the abdomen. There is an appendicolith seen within the proximal appendiceal lumen. Findings consistent with acute appendicitis. No periappendiceal abscess noted. No associated pneumoperitoneum. PERITONEUM: No ascites. No pneumoperitoneum. Mild left inguinal hernia containing only mesenteric fat. LYMPH NODES: Unremarkable. No enlarged lymph nodes. BLADDER: Unremarkable. REPRODUCTIVE: Normal prostate BONES: No acute fracture. OTHER FINDINGS: None. IMPRESSION: Unremarkable contrast enhanced CT of the abdomen and pelvis. Findings consistent with uncomplicated acute appendicitis. No periappendiceal abscess or evidence of bowel perforation. Additional minor findings as above.
[2017-12-14] MEDS ORDERED: Piperacillin/Tazobact 3.375 GM in Sodium Chloride 100 ML IVPB STA (16:23)
[2017-12-14] MEDS ORDERED: Piperacillin/Tazobact 3.375 gm 100 ML IVPB ONE (16:35)
--- NOTE | 2017-12-14 18:55 | CP.PCM.HP ---
History of Present Illness - History of Present Illness History of Present Illness: 32M with PMHx of vertebral artery dissection, stroke, femoral artery pseudoaneurysm, presents to [facility] ED with complaints of abdominal pain. Patient reports pain began earlier today. States abdominal pain began along epigastric region and migrated towards RLQ. Patient reports feeling nauseous but denies vomiting. Denies headache/dizziness, chest pain, SOB, dysuria. Last ate at 2300 yesterday night. PMHx: as stated above PSurgHx: no abdominal surgeries Allergies: NKDA Fam Hx: non-contributory Meds: levothyroxine, amlodipine, aspirin Present on Admission - Present on Admission Any Indicators Present on Admission: No Review of Systems - Review of Systems Review of Systems: 12 pt ROS carried out, unremarkable, except as stated in HPI Past Patient History - Past Medical History & Family History Past Medical History?: Yes - Past Social History Smoking Status: Never Smoked - CARDIAC Hx Hypertension: Yes - PULMONARY Hx Asthma: Yes - NEUROLOGICAL Hx Neurological Disorder: Yes HX Cerebrovascular Accident: Yes (06/04/2017) - RENAL Hx Chronic Kidney Disease: Yes Hx Kidney Stones: Yes - ENDOCRINE/METABOLIC Hx Hypothyroidism: Yes - HEMATOLOGICAL/ONCOLOGICAL Other/Comment: eboni's - MUSCULOSKELETAL/RHEUMATOLOGICAL Hx Falls: Yes - PSYCHIATRIC Hx Substance Use: No - SURGICAL HISTORY Hx Surgeries: Yes Hx Angiogram: Yes (06/05/2017) Other/Comment: right femoral artery pseudo aneurysm - ANESTHESIA Hx Anesthesia: Yes Hx Anesthesia Reactions: No Hx Malignant Hyperthermia: No Meds Allergies/Adverse Reactions: Allergies Allergy/AdvReac Type Severity Reaction Status Date / Time No Known Allergies Allergy Verified 12/14/17 12:33 Physical Exam - Constitutional Appears: No Acute Distress - Head Exam Head Exam: NORMOCEPHALIC - Eye Exam Eye Exam: Normal appearance - ENT Exam ENT Exam: Mucous Membranes Moist - Respiratory Exam Respiratory Exam: NORMAL BREATHING PATTERN - Cardiovascular Exam Cardiovascular Exam: +S1, +S2 - GI/Abdominal Exam GI & Abdominal Exam: Rebound, Soft, Tenderness. absent: Distended, Firm, Rigid Additional comments: RLQ tenderness +McBurney's +rebound tenderness - Exam Speculum exam: Erythema - Neurological Exam Neurological exam: Alert, Oriented x3 - Psychiatric Exam Psychiatric exam: Normal Mood - Skin Skin Exam: Dry, Intact, Warm Results - Vital Signs Recent Vital Signs: Last Vital Signs Temp 98.1 F 12/14/17 12:35 Pulse 108 H 12/14/17 12:35 Resp 18 12/14/17 12:35 BP 142/102 H 12/14/17 12:35 Pulse Ox 95 12/14/17 18:35 - Labs Result Diagrams: 12/14/17 13:24 12/14/17 13:24 Labs: Laboratory Results - last 24 hr 12/14/17 12/14/17 12/14/17 13:24 13:24 13:24 WBC 15.4 H D RBC 5.02 Hgb 16.0 Hct 46.1 MCV 91.9 MCH 31.9 H MCHC 34.7 RDW 13.6 Plt Count 263 MPV 9.6 Neut % (Auto) 81.9 H Lymph % (Auto) 7.5 L [place] % (Auto) 8.9 Eos % (Auto) 1.3 Baso % (Auto) 0.4 Neut # (Auto) 12.7 H Lymph # (Auto) 1.2 [place] # (Auto) 1.4 H Eos # (Auto) 0.2 Baso # (Auto) 0.1 Neutrophils % (Manual) 81 H Band Neutrophils % 2 Lymphocytes % (Manual) 8 L Monocytes % (Manual) 8 Eosinophils % (Manual) 1 Platelet Estimate Normal RBC Morphology Normal PT 11.9 INR 1.1 APTT 33 Sodium 142 Potassium 4.0 Chloride 101 Carbon Dioxide 25 Anion Gap 20 BUN 12 Creatinine 0.9 Est GFR ( Amer) > 60 Est GFR (Non-Af Amer) > 60 Random Glucose 108 Calcium 9.8 Total Bilirubin 1.2 AST 46 ALT 70 Alkaline Phosphatase 83 Total Protein 8.1 Albumin 5.0 Globulin 3.1 Albumin/Globulin Ratio 1.6 Lipase 27 Blood Type Antibody Screen 12/14/17 15:48 WBC RBC Hgb Hct MCV MCH MCHC RDW Plt Count MPV Neut % (Auto) Lymph % (Auto) [place] % (Auto) Eos % (Auto) Baso % (Auto) Neut # (Auto) Lymph # (Auto) [place] # (Auto) Eos # (Auto) Baso # (Auto) Neutrophils % (Manual) Band Neutrophils % Lymphocytes % (Manual) Monocytes % (Manual) Eosinophils % (Manual) Platelet Estimate RBC Morphology PT INR APTT Sodium Potassium Chloride Carbon Dioxide Anion Gap BUN Creatinine Est GFR ( Amer) Est GFR (Non-Af Amer) Random Glucose Calcium Total Bilirubin AST ALT Alkaline Phosphatase Total Protein Albumin Globulin Albumin/Globulin Ratio Lipase Blood Type O POSITIVE Antibody Screen Negative Assessment & Plan - Assessment and Plan (Free Text) Assessment: 32M with acute appendicitis Plan: NPO IVF ABx Analgesics/Anti-emetics prn OR for laparoscopic appendectomy Consent in chart D/w Dr. Todd Matos PGY3
[2017-12-14] MEDS ORDERED: Midazolam 2 MG/2 ML VIAL ONE (19:35)
[2017-12-14] MEDS ORDERED: Propofol 10 mg/ml Inj (20 ML) ONE (19:35)
[2017-12-14] MEDS ORDERED: Rocuronium 10 mg/ml (5 ml) ONE (20:04)
[2017-12-14] MEDS ORDERED: Succinylcholine Chloride 20 mg/ml Syr (5 ml) IV ONE (20:04)
[2017-12-14] MEDS ORDERED: Neostigmine Methylsulfate 3mg/3ml Syringe IV ONE (20:28)
[2017-12-14] MEDS ORDERED: HYDROmorphone 0.5 mg/0.5 ml ISec IVP PRN (20:51)
[2017-12-14] MEDS: Dextrose 5%/0.45% NS 1,000 ML IV SCH (20:51)
--- NOTE | 2017-12-14 21:03 | PCM.SURG1 ---
Surgeon's Initial Post Op Note - Surgeon's Notes Surgeon: Aleah Brooks Nurse Sane: Mohamud Stephens Type of Anesthesia: General Endo Anesthesia Administered By: Jessica Pre-Operative Diagnosis: acute appendicitis Operative Findings: inflamed appendix with appendicolith Post-Operative Diagnosis: acute appendicitis Operation Performed: laparoscopic appendectomy Specimen/Specimens Removed: appendix Estimated Blood Loss: EBL {In ML}: 10 Blood Products Given: N/A Drains Used: No Drains Post-Op Condition: Good Date of Surgery/Procedure: 12/14/17 Time of Surgery/Procedure: 21:03
[2017-12-14 22:44] VITALS: RESP 20
[2017-12-15] MEDS: Piperacill/Tazo 3.375gm in Dex 3.375 GM/50 ML BAG IVPB SCH ×5 (00:40→22:07)
[2017-12-15] MEDS: HYDROmorphone 0.5 mg/0.5 ml ISec IVP PRN ×2 (03:23→14:14)
--- NOTE | 2017-12-15 05:24 | OP ---
Copied To: Toby Brooks MD Attending MD: Toby Brooks MD PROCEDURE DATE: 12/14/2017 SURGEON: Toby Brooks MD POSTAL SERVICE CLERK: Fabian Stephens DO ANESTHESIA: General. ANESTHESIOLOGIST: Dr. Lopez PREOPERATIVE DIAGNOSIS: Acute appendicitis. POSTOPERATIVE DIAGNOSIS: Acute appendicitis. PROCEDURE: Laparoscopic appendectomy. DESCRIPTION OF OPERATION: With the patient in the supine position under adequate general anesthesia, the abdomen was prepped and draped in the usual sterile manner. Veress needle puncture was performed at the umbilicus with insufflation to 15 cm water pressure of CO2, and a 10-mm laparoscopic trocar was inserted via an infraumbilical incision. Under direct vision, 5-mm and 12-mm trocars were inserted in the left lower quadrant and suprapubic respectively. The appendix was identified. The cecum was located well up above the pelvis along the abdominal sidewall. The appendix was visualized, grasped and elevated. The appendix was elongated and tortuous with small amount of purulent exudate on the serosal surface. The mesoappendix was markedly thickened as well. The mesoappendix was dissected and then divided with an Endo REMEDIOS stapler. The appendix itself was divided close to the cecum also with the Endo REMEDIOS stapler. The appendix was placed in a specimen retrieval bag and removed via the 12-mm port site. The right gutter was suctioned. The pneumoperitoneum was released, and the trocars were removed. The 12-mm umbilical port sites were closed with [id number] fascial sutures of 0 Vicryl. All incisions were closed with 4-0 Monocryl subcuticular sutures and Steri-Strips. Dry sterile dressings were applied. The patient tolerated the procedure well and transferred to the recovery room in stable condition. Estimated blood loss for the procedure was 10 mL. Toby Brooks MD
[2017-12-15] MEDS: Levothyroxine 150 MCG TAB PO SCH (06:16)
[2017-12-15 08:14] LABS: MEAN CELL VOLUME 92.5 fL (80.0-94.0); MEAN CORPUSCULAR HGB CONC 34.6 g/dL (33.0-37.0); RBC 4.01 Mil/uL (4.40-5.90); RED CELL DISTRIBUTION WIDTH 13.6 % (11.5-14.5); WHITE BLOOD COUNT 17.6 K/uL (4.8-10.8)
[2017-12-15 08:22] LABS: HEMOGLOBIN 12.9 g/dL (12.0-18.0)
[2017-12-15 08:26] LABS: BLOOD UREA NITROGEN 13 mg/dL (9-20); GFR AFRICAN-AMERICAN > 60; GFR NON-AFRICAN AMERICAN > 60
[2017-12-15] MEDS: Dextrose 5%/0.45% NS 1,000 ML IV SCH ×2 (09:51→12:29)
[2017-12-15] MEDS ORDERED: Ergocalciferol 50,000 Intl Units Cap PO SCH (10:00)
--- NOTE | 2017-12-15 17:25 | CP.PCM.DIS ---
Provider - Provider Date of Admission: 12/14/17 18:03 Attending physician: Toby Brooks MD Time Spent in preparation of Discharge (in minutes): 30 Diagnosis - Discharge Diagnosis (1) Acute appendicitis Status: Acute Hospital Course - Lab Results Lab Results: Most Recent Lab Values WBC 17.6 K/uL (4.8-10.8) H 12/15/17 08:09 RBC 4.01 Mil/uL (4.40-5.90) L 12/15/17 08:09 Hgb 12.9 g/dL (12.0-18.0) D 12/15/17 08:09 Hct 37.1 % (35.0-51.0) 12/15/17 08:09 MCV 92.5 fL (80.0-94.0) 12/15/17 08:09 MCH 32.0 pg (27.0-31.0) H 12/15/17 08:09 MCHC 34.6 g/dL (33.0-37.0) 12/15/17 08:09 RDW 13.6 % (11.5-14.5) 12/15/17 08:09 Plt Count 299 K/uL (130-400) 12/15/17 08:09 MPV 9.0 fL (7.2-11.7) 12/15/17 08:09 Neut % (Auto) 81.9 % (50.0-75.0) H 12/14/17 13:24 Lymph % (Auto) 7.5 % (20.0-40.0) L 12/14/17 13:24 [place] % (Auto) 8.9 % (0.0-10.0) 12/14/17 13:24 Eos % (Auto) 1.3 % (0.0-4.0) 12/14/17 13:24 Baso % (Auto) 0.4 % (0.0-2.0) 12/14/17 13:24 Neut # (Auto) 12.7 K/uL (1.8-7.0) H 12/14/17 13:24 Lymph # (Auto) 1.2 K/uL (1.0-4.3) 12/14/17 13:24 [place] # (Auto) 1.4 K/uL (0.0-0.8) H 12/14/17 13:24 Eos # (Auto) 0.2 K/uL (0.0-0.7) 12/14/17 13:24 Baso # (Auto) 0.1 K/uL (0.0-0.2) 12/14/17 13:24 Neutrophils % (Manual) 81 % (50-75) H 12/14/17 13:24 Band Neutrophils % 2 % (0-2) 12/14/17 13:24 Lymphocytes % (Manual) 8 % (20-40) L 12/14/17 13:24 Monocytes % (Manual) 8 % (0-10) 12/14/17 13:24 Eosinophils % (Manual) 1 % (0-4) 12/14/17 13:24 Platelet Estimate Normal (NORMAL) 12/14/17 13:24 RBC Morphology Normal 12/14/17 13:24 PT 11.9 SECONDS (9.7-12.2) 12/14/17 13:24 INR 1.1 12/14/17 13:24 APTT 33 SECONDS (21-34) 12/14/17 13:24 Sodium 135 mmol/L (132-148) 12/15/17 08:09 Potassium 4.3 mmol/L (3.6-5.2) 12/15/17 08:09 Chloride 98 mmol/L (98-107) 12/15/17 08:09 Carbon Dioxide 23 mmol/L (22-30) 12/15/17 08:09 Anion Gap 19 (10-20) 12/15/17 08:09 BUN 13 mg/dL (9-20) 12/15/17 08:09 Creatinine 1.0 mg/dL (0.8-1.5) 12/15/17 08:09 Est GFR ( Amer) > 60 12/15/17 08:09 Est GFR (Non-Af Amer) > 60 12/15/17 08:09 Random Glucose 163 mg/dL (75-110) H 12/15/17 08:09 Calcium 9.0 mg/dl (8.6-10.4) 12/15/17 08:09 Total Bilirubin 1.2 mg/dL (0.2-1.3) 12/14/17 13:24 AST 46 U/L (17-59) 12/14/17 13:24 ALT 70 U/L (21-72) 12/14/17 13:24 Alkaline Phosphatase 83 U/L (38-126) 12/14/17 13:24 Total Protein 8.1 g/dL (6.3-8.3) 12/14/17 13:24 Albumin 5.0 g/dL (3.5-5.0) 12/14/17 13:24 Globulin 3.1 gm/dL (2.2-3.9) 12/14/17 13:24 Albumin/Globulin Ratio 1.6 (1.0-2.1) 12/14/17 13:24 Lipase 27 U/L (23-300) 12/14/17 13:24 Blood Type O POSITIVE 12/14/17 15:48 Antibody Screen Negative 12/14/17 15:48 - Hospital Course Hospital Course: 32M w. presented w. acute appendicitis. Underwent lap appy. Post-op course was uncomplicated. Pt is tolerating diet. No N/V. Mild abd pain. Ambulating and voiding without issue. Pt is clear for D/C from surgical stand point. Discharge Exam - Head Exam Head Exam: NORMOCEPHALIC - Eye Exam Eye Exam: EOMI - ENT Exam ENT Exam: Mucous Membranes Dry - Respiratory Exam Respiratory Exam: NORMAL BREATHING PATTERN. absent: Accessory Muscle Use, Respiratory Distress - GI/Abdominal Exam GI & Abdominal Exam: Soft. absent: Distended, Firm, Guarding, Rebound, Rigid, Tenderness Additional comments: incisions C/D/I - Neurological Exam Neurological exam: Alert, Oriented x3 - Psychiatric Exam Psychiatric exam: Normal Affect, Normal Mood - Skin Skin Exam: Dry, Normal Color, Warm Discharge Plan - Follow Up Plan Condition: FAIR Disposition: HOME/ ROUTINE Patient education suggested?: Yes Instructions: Appendectomy, Laparoscopic Surgery, Appendicitis in Adults Additional Instructions: F/U w. Dr. Brooks in 2 weeks No lifting greater than 15-20lbs for 4 weeks Diet as tolerated Referrals: Toby Brooks MD [Staff Provider] -
[2017-12-16] MEDS: Levothyroxine 150 MCG TAB PO SCH (06:18)
[2017-12-16] MEDS: Piperacill/Tazo 3.375gm in Dex 3.375 GM/50 ML BAG IVPB SCH (06:18)
[2017-12-16 07:58] VITALS: BP 143/82; PULSE 106; TEMP 98.4; O2SAT 95
--- NOTE | 2017-12-16 12:48 | CARD ---
APPROVED REPORT Date of service: 12/14/2017 EKG Measurement Heart [id number] <Conclusion> Normal sinus rhythm Normal ECG
== END 2017-12-16 09:48 | disposition home or self-care (01) | DRG 343 ==
LOC: C.ER 12:21 → C.9E 18:03 → C.3T 20:56
PROVIDERS: ADMIT Specialist; ATTEND Specialist
PROC: 0DTJ4ZZ Resection of Appendix, Percutaneous Endoscopic Approach (ICD-10-PCS; principal; 2017-12-14 19:00)
DX: K35.89 Other acute appendicitis (principal); I12.9 Hypertensive chronic kidney disease with stage 1 through stage 4 chronic kidney disease, or unspecified chronic kidney disease; J45.909 Unspecified asthma, uncomplicated; N18.9 Chronic kidney disease, unspecified; Z86.73 Personal history of transient ischemic attack (TIA), and cerebral infarction without residual deficits; E06.3 Autoimmune thyroiditis